=== PATIENT | female | born 1955 ===

== ENCOUNTER 2018-05-10 06:06 | Inpatient (IN) | payer OTHER ==
[2018-05-10] MEDS ORDERED: ceFAZolin IV 1 gm in Dextrose 1 GM/50 ML BAG IVPB ONE ×2 (07:28→08:21)
[2018-05-10] MEDS ORDERED: Lidocaine Hydrochloride 0 ML INJ ONE (07:28)
[2018-05-10] MEDS ORDERED: Bupivacaine HCl 0.5% PF (30 ml) Inj ONE (07:28)
[2018-05-10] MEDS ORDERED: Lidocaine/Epinephrine 1% 1:100000 10 ML IJ ONE ×2 (07:29→07:33)
[2018-05-10] MEDS ORDERED: Thrombin Topical 20,000 Intl Units Spray Kit TOP ONE (07:31)
[2018-05-10] MEDS ORDERED: Absorbable Gelatin Sponge Size 100 ONE ×2 (07:32→08:07)
[2018-05-10] MEDS ORDERED: Bacitracin Ointment 30 GM TUBE ONE (07:33)
[2018-05-10] MEDS ORDERED: Propofol 10 mg/ml 2,000 MG/200 ML VIAL ONE (07:39)
[2018-05-10] MEDS ORDERED: Midazolam 2 MG/2 ML VIAL ONE ×3 (07:44→08:36)
[2018-05-10] MEDS ORDERED: Bupivacaine Liposomal Inj 20 ml INFIL ONE (08:00)
[2018-05-10] MEDS ORDERED: Bacitracin 50,000 UNIT in Sodium Chloride 0.9% Irrig 1,000 ML IR SCH (08:00)
[2018-05-10] MEDS ORDERED: ePHEDrine 50 mg/ml Inj ONE (09:48)
[2018-05-10] MEDS ORDERED: Sodium Chloride 0.9% 20 ML IV ONE (10:10)
[2018-05-10] MEDS: HYDROmorphone 0.5 mg/0.5 ml ISec IVP PRN ×3 (11:23→13:17)
[2018-05-10] MEDS ORDERED: Dexamethasone 4 mg/1 ml IVP PRN (11:45)
[2018-05-10] MEDS ORDERED: Acetaminophen 650mg/20.3ml solution UD PO PRN (12:00)
[2018-05-10] MEDS ORDERED: Lactated Ringer's 1,000 ML IV ONE (12:18)
[2018-05-10] MEDS: Potassium Ch 20mEq in D5-1/2NS 1,000 ML IV SCH ×2 (14:15→22:04)
--- NOTE | 2018-05-10 14:49 | RAD ---
Date of service: 05/10/2018 PROCEDURE: Intraoperative Fluoroscopy. HISTORY: LUMBAR SPONDYLOSIS FINDINGS: Fluoroscopic assistance was provided for L4-5 fusion. Please refer to the operative report from ARON Lyman. Total fluoroscopic time (continuous mode) utilized during the procedure 59.6 seconds. Total exam DLP: 61.80 (mGy).
[2018-05-10] MEDS: Pantoprazole 40 mg EC Tab PO SCH (18:00)
[2018-05-11] MEDS: Potassium Ch 20mEq in D5-1/2NS 1,000 ML IV SCH ×2 (03:08→14:12)
--- NOTE | 2018-05-11 07:04 | OP ---
PROCEDURE DATE: 05/10/2018 PREOPERATIVE DIAGNOSIS: Lumbar spondylolisthesis, L4-L5. POSTOPERATIVE DIAGNOSIS: Lumbar spondylolisthesis, L4-L5. PROCEDURE: L4-L5 segmental fixation and posterolateral fusion with iliac autograft. SURGEON: Laci Mendez MD CLOTH STOCK SORTER: Dr. Alfred ANESTHESIA: General endotracheal. ESTIMATED BLOOD LOSS: 300 mL, 125 mL returned via [facility]. COMPLICATIONS: None. JUSTIFICATION: The patient is status post accident, ever since when she is suffering with severe low back pain. Imaging workup with MRI as well as plain films documented an L4-L5 spondylolisthesis that was unstable on flexion/extension. The patient was offered the possibility of operative intervention by fixation and fusion. The nature of this procedure, the rationale behind it, alternatives, potential risks and complications, realistic chance of success, and recovery time were discussed with her at length. All questions were answered. She fully understood all the above and elected to proceed as offered. DESCRIPTION OF PROCEDURE: The patient was brought into the operating room and hooked up to neurophysiological monitoring. She was carefully intubated, anesthetized, and placed on the OR table on a Go frame in a prone position. Care was taken to protect her face, eyes, endotracheal tube, and all bony prominences. The entire low back region was then scrubbed with acetone, scrub painted, and draped in the usual sterile manner. Incision was localized with lateral fluoroscopy. Incision was made with a 10-blade knife and carried down to level of the fascia. The fascia was incised. Paraspinal muscles were then stripped off the spinous processes and lamina of L4 and L5. Confirmatory x-ray was taken. The exposure was widened out bilaterally to expose the transverse processes at both levels. Bleeding was controlled throughout with bipolar cautery and thrombinated Gelfoam. We exposed the entire facet on both sides. At this point, we noticed actually . There were hyperreactive changes involving the facet. There was clear gross instability noted between the spinous processes. At this point, we performed bone harvestation. A 5-gauge trocar was inserted directly into the right superior posterior iliac crest. Approximately 90 mL of bone marrow were aspirated. These were spun down to obtain the bone marrow mesenchymal cells later used in the fusion. At this point, we removed the spinous processes of L4 and L5. We kept the interspinous ligaments intact between L3 and L1. We thinned down the lamina as well in preparation for the fusion. At this point, we placed the pedicular screws. The technique was used identifying the pedicular entrance fluoroscopically. A high-speed drill was used to drill through the cortical bone. We then used a gearshift to pass down the barrel of the pedicle into the vertebral body. This was all done under constant fluoroscopy. A ball-tip probe was used to inspect the passage to ensure there was bone all around, and then we placed the appropriate-sized screw. Additionally, the gearshift and the screws were all stimulated with electrical current while monitoring lower extremity EMG. Using this technique, we placed 6 mm diameter screws at all sites of varying length between 40 mm and 45 mm. No screw elicited any EMG activity below 20 mA. AP and lateral x-ray confirmed good position of all screws. At this point, we used the high-speed drill to decorticate all bony surfaces, which included the lamina, the facet, lateral facet, and pars as well as the transverse process. We then placed the correct size locking horacio into the two-screw head receptacles on each side. Locking nuts were then placed and torque wrenched tight. We then placed all bone graft into and onto the bony surfaces as described above. Final x-rays confirmed good position of the construct. Of note, the bone graft that was used was product of decompression with additional marrow impregnated allograft and marrow impregnated sponges. The retractors were withdrawn. The muscles were reapproximated using interrupted 0 Vicryl stitch. The fascia was closed using a tight interrupted 0 Vicryl stitch. The muscles were infiltrated with mix of long-acting local anesthetic. The wound was copiously irrigated with antibiotic solution. The subcu was closed in two separate layers of interrupted inverted 2-0 Vicryl. The skin was closed with a running 3-0 Monocryl stitch, benzoin, and Steri-Strips. A dressing was applied. The patient was turned back onto a supine position on a stretcher. She was noted to be moving her lower extremities well on her way to the recovery room. Somatosensory evoked potentials were stable over the procedure. EMG was quiet at the end of the procedure. There were no complications. Counts were correct. Laci Mendez MD [facility] # [id number]
[2018-05-11] MEDS ORDERED: Oxycodone/Acetaminophen 5/325 mg Tab PO PRN (07:18)
[2018-05-11] MEDS: oxyCODONE 20 mg ER Tab (oxyCONTIN) PO SCH ×2 (09:05→22:20)
[2018-05-11] MEDS: Pantoprazole 40 mg EC Tab PO SCH (09:08)
[2018-05-11] MEDS ORDERED: Influenza Vaccine 60 MCG/0.5 ML SYR (3 yr & up) IM ONE (11:24)
[2018-05-11] MEDS ORDERED: Pneumococcal 23-Valent Vaccine IM ONE (11:24)
--- NOTE | 2018-05-11 11:47 | CP.PCM.PN ---
Subjective - Date & Time of Evaluation Date of Evaluation: 05/11/18 Time of Evaluation: 11:43 - Subjective Subjective: SPINE - POD #1 Pt resting in bed. Reportedly was OOB in chair earlier. Very nauseous overnight. [employer] stopped and pt better. Afebrile. Tachycardic but BP ok. Moves LE's actively and neuro grossly intact. Plan: Mobilize as tolerated. Pt unable to go to any [facility] that does not have rooms on first floor. Lives with family in 3 story walkup. Consider d/c to home w [facility]/home rehab when able. Objective - Vital Signs/Intake and Output Vital Signs (last 24 hours): Temp Pulse Resp BP Pulse Ox 98.4 F 102 H 20 110/73 95 05/11/18 08:00 05/11/18 08:00 05/11/18 08:00 05/11/18 08:00 05/11/18 08:00 Intake and Output: 05/11/18 05/11/18 06:59 18:59 Intake Total 720 Output Total 950 Balance -230 - Medications Medications: Current Medications Acetaminophen (Tylenol 650mg/20.3ml Solution Ud) 500 mg PO Q6 PRN PRN Reason: Pain, moderate (4-7) Alprazolam (Xanax) 0.5 mg PO BID [facility] Last Admin: 05/11/18 09:07 Dose: Not Given Docusate Sodium (Colace) 100 mg PO BID [facility] Last Admin: 05/11/18 09:07 Dose: Not Given Ferrous Sulfate (Feosol) 325 mg PO DAILY [facility] Last Admin: 05/11/18 09:07 Dose: 325 mg Potassium Chloride/Dextrose/Sod Cl (Potassium Chl 20 Meq In D5-1/2ns) 1,000 mls @ 90 mls/hr IV .Q11H7M [facility] Last Admin: 05/11/18 03:08 Dose: 90 mls/hr Ondansetron HCl (Zofran Inj) 4 mg IVP Q6 PRN PRN Reason: Nausea/Vomiting Oxycodone HCl (Oxycontin Extended Release Tab) 20 mg PO Q12 [facility] Last Admin: 05/11/18 09:05 Dose: 20 mg Oxycodone/Acetaminophen (Percocet 5/325 Mg Tab) 1 tab PO Q6H PRN PRN Reason: Pain, moderate (4-7) Stop: 05/14/18 07:19 Pantoprazole Sodium (Protonix Ec Tab) 40 mg PO DAILY [facility] Last Admin: 05/11/18 09:08 Dose: 40 mg Quetiapine Fumarate (Seroquel) 25 mg PO DAILY [facility] Last Admin: 05/11/18 09:07 Dose: Not Given Sertraline HCl (Zoloft) 50 mg PO DAILY [facility] Last Admin: 05/11/18 09:07 Dose: 50 mg Zolpidem Tartrate (Ambien) 5 mg PO [facility]
[2018-05-12] MEDS: Potassium Ch 20mEq in D5-1/2NS 1,000 ML IV SCH (01:42)
--- NOTE | 2018-05-12 07:57 | CP.PCM.PN ---
Subjective - Date & Time of Evaluation Date of Evaluation: 05/12/18 Time of Evaluation: 07:56 - Subjective Subjective: pt has incisonal pain no leg pain able to move ble well not ambulating yet doesn't want to take api meds will attempt to mobilize and adv activities d/c iv Objective - Vital Signs/Intake and Output Vital Signs (last 24 hours): Temp Pulse Resp BP Pulse Ox 99.3 F 99 H 20 99/61 L 94 L 05/11/18 23:59 05/11/18 23:59 05/11/18 23:59 05/11/18 23:59 05/11/18 23:59 Intake and Output: 05/12/18 05/12/18 06:59 18:59 Intake Total 1760 Output Total 1050 Balance 710 - Medications Medications: Current Medications Acetaminophen (Tylenol 650mg/20.3ml Solution Ud) 500 mg PO Q6 PRN PRN Reason: Pain, moderate (4-7) Alprazolam (Xanax) 0.5 mg PO BID [facility] Last Admin: 05/11/18 17:55 Dose: 0.5 mg Docusate Sodium (Colace) 100 mg PO BID [facility] Last Admin: 05/11/18 17:55 Dose: 100 mg Ferrous Sulfate (Feosol) 325 mg PO DAILY [facility] Last Admin: 05/11/18 09:07 Dose: 325 mg Potassium Chloride/Dextrose/Sod Cl (Potassium Chl 20 Meq In D5-1/2ns) 1,000 mls @ 90 mls/hr IV .Q11H7M [facility] Last Admin: 05/12/18 01:42 Dose: 90 mls/hr Ondansetron HCl (Zofran Inj) 4 mg IVP Q6 PRN PRN Reason: Nausea/Vomiting Last Admin: 05/11/18 17:56 Dose: 4 mg Oxycodone HCl (Oxycontin Extended Release Tab) 20 mg PO Q12 [facility] Last Admin: 05/11/18 22:20 Dose: 20 mg Oxycodone/Acetaminophen (Percocet 5/325 Mg Tab) 1 tab PO Q6H PRN PRN Reason: Pain, moderate (4-7) Stop: 05/14/18 07:19 Pantoprazole Sodium (Protonix Ec Tab) 40 mg PO DAILY [facility] Last Admin: 05/11/18 09:08 Dose: 40 mg Quetiapine Fumarate (Seroquel) 25 mg PO DAILY [facility] Last Admin: 05/11/18 09:07 Dose: Not Given Sertraline HCl (Zoloft) 50 mg PO DAILY [facility] Last Admin: 05/11/18 09:07 Dose: 50 mg Zolpidem Tartrate (Ambien) 5 mg PO HS [facility] Last Admin: 05/11/18 22:20 Dose: Not Given
[2018-05-12] MEDS: Pantoprazole 40 mg EC Tab PO SCH (09:15)
[2018-05-12] MEDS: oxyCODONE 20 mg ER Tab (oxyCONTIN) PO SCH ×2 (09:16→21:10)
[2018-05-13] MEDS: oxyCODONE 20 mg ER Tab (oxyCONTIN) PO SCH ×2 (10:05→21:21)
[2018-05-13] MEDS: Pantoprazole 40 mg EC Tab PO SCH (10:06)
--- NOTE | 2018-05-13 12:56 | CP.PCM.PN ---
Subjective - Subjective Subjective: POD 3 amb with PT sitting in chair min pain med use interested ih going home Plan DC Objective - Vital Signs/Intake and Output Vital Signs (last 24 hours): Temp Pulse Resp BP Pulse Ox 98.4 F 93 H 20 94/61 L 94 L 05/13/18 07:00 05/13/18 07:00 05/13/18 07:00 05/13/18 07:00 05/13/18 07:00 Intake and Output: 05/13/18 05/13/18 06:59 18:59 Intake Total 620 Balance 620 - Medications Medications: Current Medications Acetaminophen (Tylenol 650mg/20.3ml Solution Ud) 500 mg PO Q6 PRN PRN Reason: Pain, moderate (4-7) Alprazolam (Xanax) 0.5 mg PO BID [facility] Last Admin: 05/13/18 10:06 Dose: 0.5 mg Docusate Sodium (Colace) 100 mg PO BID [facility] Last Admin: 05/13/18 10:06 Dose: 100 mg Ferrous Sulfate (Feosol) 325 mg PO DAILY [facility] Last Admin: 05/13/18 10:06 Dose: 325 mg Ondansetron HCl (Zofran Inj) 4 mg IVP Q6 PRN PRN Reason: Nausea/Vomiting Last Admin: 05/11/18 17:56 Dose: 4 mg Oxycodone HCl (Oxycontin Extended Release Tab) 20 mg PO Q12 [facility] Last Admin: 05/13/18 10:05 Dose: 20 mg Oxycodone/Acetaminophen (Percocet 5/325 Mg Tab) 1 tab PO Q6H PRN PRN Reason: Pain, moderate (4-7) Stop: 05/14/18 07:19 Last Admin: 05/13/18 06:36 Dose: 1 tab Pantoprazole Sodium (Protonix Ec Tab) 40 mg PO DAILY [facility] Last Admin: 05/13/18 10:06 Dose: 40 mg Quetiapine Fumarate (Seroquel) 25 mg PO DAILY [facility] Last Admin: 05/13/18 10:06 Dose: Not Given Sertraline HCl (Zoloft) 50 mg PO DAILY [facility] Last Admin: 05/13/18 10:06 Dose: 50 mg Zolpidem Tartrate (Ambien) 5 mg PO HS [facility] Last Admin: 05/12/18 21:10 Dose: Not Given
[2018-05-13] MEDS ORDERED: Lidocaine 5% Patch TD PRN (15:15)
[2018-05-14] MEDS: oxyCODONE 20 mg ER Tab (oxyCONTIN) PO SCH ×2 (10:29→21:49)
[2018-05-14] MEDS: Pantoprazole 40 mg EC Tab PO SCH (10:29)
[2018-05-14] MEDS ORDERED: Pneumococcal 23-Valent Vaccine IM ONE (12:14)
[2018-05-14] MEDS ORDERED: Influenza Vaccine 60 MCG/0.5 ML SYR (3 yr & up) IM ONE (12:14)
[2018-05-15] MEDS: oxyCODONE 20 mg ER Tab (oxyCONTIN) PO SCH ×3 (09:38→21:33)
[2018-05-15] MEDS: Pantoprazole 40 mg EC Tab PO SCH (09:39)
--- NOTE | 2018-05-15 10:16 | CP.PCM.PN ---
Subjective - Date & Time of Evaluation Date of Evaluation: 05/15/18 Time of Evaluation: 10:14 - Subjective Subjective: Pt now declined going home- a 'cousin' advised her to go to rehab will have to adress with ss in am wound is c and d neuro intact amb with family /walker plan as above Objective - Vital Signs/Intake and Output Vital Signs (last 24 hours): Temp Pulse Resp BP Pulse Ox 97.6 F 70 18 100/66 98 05/15/18 07:26 05/15/18 07:26 05/15/18 07:26 05/15/18 07:26 05/15/18 07:26 - Medications Medications: Current Medications Acetaminophen (Tylenol 650mg/20.3ml Solution Ud) 500 mg PO Q6 PRN PRN Reason: Pain, moderate (4-7) Alprazolam (Xanax) 0.5 mg PO BID [facility] Last Admin: 05/15/18 09:40 Dose: Not Given Docusate Sodium (Colace) 100 mg PO BID [facility] Last Admin: 05/14/18 18:19 Dose: 100 mg Ferrous Sulfate (Feosol) 325 mg PO DAILY [facility] Last Admin: 05/15/18 09:38 Dose: 325 mg Lidocaine (Lidoderm) 1 ea TD DAILY PRN PRN Reason: Pain, Mild (1-3) Ondansetron HCl (Zofran Inj) 4 mg IVP Q6 PRN PRN Reason: Nausea/Vomiting Last Admin: 05/11/18 17:56 Dose: 4 mg Oxycodone HCl (Oxycontin Extended Release Tab) 20 mg PO Q12 [facility] Pantoprazole Sodium (Protonix Ec Tab) 40 mg PO DAILY [facility] Last Admin: 05/15/18 09:39 Dose: 40 mg Quetiapine Fumarate (Seroquel) 25 mg PO DAILY [facility] Last Admin: 05/15/18 09:39 Dose: 25 mg Sertraline HCl (Zoloft) 50 mg PO DAILY [facility] Last Admin: 05/15/18 09:38 Dose: 50 mg Zolpidem Tartrate (Ambien) 5 mg PO HS [facility] Last Admin: 05/14/18 21:50 Dose: 5 mg
[2018-05-16 08:48] VITALS: RESP 20; TEMP 98.4
[2018-05-16] MEDS: Pantoprazole 40 mg EC Tab PO SCH (09:30)
[2018-05-16] MEDS: oxyCODONE 20 mg ER Tab (oxyCONTIN) PO SCH (09:30)
[2018-05-16 16:01] VITALS: BP 102/69; PULSE 84; O2SAT 96
[2018-05-16] MEDS ORDERED: Oxycodone/Acetaminophen 5/325 mg Tab PO ONE (16:30)
== END 2018-05-16 20:25 | disposition home or self-care (01) | DRG 460 ==
LOC: C.9S 06:06 → C.5S 21:13
PROVIDERS: ADMIT Neurological Surgery; ATTEND Neurological Surgery
PROC: 07DR3ZZ Extraction of Iliac Bone Marrow, Percutaneous Approach (ICD-10-PCS; 2018-05-10)
PROC: 0SG00AJ Fusion of Lumbar Vertebral Joint with Interbody Fusion Device, Posterior Approach, Anterior Column, Open Approach (ICD-10-PCS; principal; 2018-05-10 07:30)
DX: M43.16 Spondylolisthesis, lumbar region (principal)